=== PATIENT | female | born 1960 | race Caucasian/White ===

== ENCOUNTER 2021-10-17 08:48 | Emergency (ER) | payer OTHER ==
[~2021-10-17 08:48] MED LIST: CYCLOBENZAPRINE5 MG PO; IBUPROFEN800 MG PO
[2021-10-17 09:38] LABS: BASOPHIL 0.4 % (0-2); EOSINOPHIL 1.4 % (0-5); HCT 39.8 % (37.0-47.0); HGB 13.1 g/dl (12.5-16.0); LYMPHOCYTE 21.3 % (15-48); MCH 31.3 pg (25.0-31.0); MCHC 32.9 g/dL (32.0-36.0); MONOCYTE 8.2 % (0-12); MPV 9.8 fL (6.0-9.5); NEUTROPHIL 68.4 % (41-80); NRBC 0; PLT 222 K/uL (150-400); RBC 4.19 M/uL (4.20-5.40); RDW 13.8 % (11.5-14.0)
[2021-10-17 09:41] LABS: BILIRUBIN NEGATIVE (NEGATIVE); BLOOD NEGATIVE Ery/uL (NEGATIVE); CLARITY CLEAR (CLEAR); COLOR YELLOW (YELLOW); GLUCOSE (U) NORMAL (NORMAL); LEUKOCYTES TRACE Leu/uL (NEGATIVE); NITRITE NEGATIVE (NEGATIVE); PROTEIN NEGATIVE (NEGATIVE); SPECIFIC GRAVITY 1.025 (1.001-1.030); UROBILINOGEN 0.2 mg/dL (0.2-1.0)
[2021-10-17 09:50] LABS: ALBUMIN 3.2 g/dL (3.4-5.0); BILIRUBIN - TOTAL 0.3 mg/dL (0.2-1.0); BUN/CREAT RATIO (CALC) 18.4 RATIO; CREATININE 1.03 mg/dL (0.51-0.95); GLOBULIN (CALCULATION) 3.6 g/dL; POTASSIUM 3.9 mmol/L (3.5-5.1); TOTAL PROTEIN 6.8 g/dL (6.4-8.2)
[2021-10-17 09:54] LABS: BACTERIA 1+; SQUAMOUS EPITHELIAL CELLS 20-50
[2021-10-17] MEDS ORDERED: METRONIDAZOLE500 MG PO (12:12)
== END 2021-10-17 12:41 | disposition home or self-care (01) ==
LOC: FER 08:48
PROVIDERS: Emergency Medicine
DX: R19.7 Diarrhea, unspecified (principal); R93.5 Abnormal findings on diagnostic imaging of other abdominal regions, including retroperitoneum; R91.1 Solitary pulmonary nodule; K21.9 Gastro-esophageal reflux disease without esophagitis; I11.0 Hypertensive heart disease with heart failure; I50.9 Heart failure, unspecified; Z95.810 Presence of automatic (implantable) cardiac defibrillator; Z87.891 Personal history of nicotine dependence; Z79.899 Other long term (current) drug therapy
CPT/HCPCS: 36415; 80053; 81001; 83690; 84145; 85025; Q9967